=== PATIENT | female | born 1985 | race African-American/Black ===

== ENCOUNTER 2019-06-05 05:30 | Inpatient (IN) | payer OTHER ==
[2019-06-05] MEDS ORDERED: Diphenoxylate HCl/Atropine Tablet PO PRN ×2 (23:11)
[2019-06-05] MEDS ORDERED: Zolpidem Tartrate 5 MG TAB PO PRN (23:11)
[2019-06-05] MEDS ORDERED: Butorphanol Tartrate 1 MG/ML VIAL SLOW IVP PRN (23:11)
[2019-06-05] MEDS ORDERED: NS w/ Oxytocin 10 units 500 ML IV SCH ×2 (23:11)
[2019-06-05] MEDS ORDERED: Promethazine HCl 25 MG/ML VIAL IM PRN (23:11)
[2019-06-05] MEDS ORDERED: Misoprostol 200 MCG TAB PR PRN (23:11)
[2019-06-05] MEDS ORDERED: Docusate 100 MG CAP PO PRN (23:11)
[2019-06-05] MEDS ORDERED: HYDROcodone/Acetaminophen 5/325 mg Tablet PO PRN ×2 (23:11)
[2019-06-05] MEDS ORDERED: hydrALAZINE 20 MG/ML VIAL SLOW IVP PRN (23:11)
[2019-06-05] MEDS ORDERED: Lidocaine 1% (PF) 30 ML VIAL SC PRN (23:11)
[2019-06-05] MEDS ORDERED: Ondansetron PF 4 MG/2 ML Vial IVP PRN (23:11)
[2019-06-05] MEDS ORDERED: NS / Oxytocin 40 units/1000ml 1,000 ML IV PRN (23:11)
[2019-06-05] MEDS ORDERED: Acetaminophen 500 MG TAB PO PRN (23:11)
[2019-06-05] MEDS ORDERED: Ibuprofen 800 MG TAB PO PRN (23:11)
[2019-06-05 23:21] VITALS: BMI 37.3
[2019-06-06 00:02] LABS: Hemoglobin 10.2 g/dL (12.0-16.0); Mean Corpuscular HGB CONC 32.7 g/dL (32.0-36.0); Mean Corpuscular Hemoglobin 24.2 pg (27.0-31.0); Mean Corpuscular Volume 74.1 fL (78.0-98.0); Mean Platelet Volume 8.4 fL (7.4-10.4); Platelet Count 199 thou/uL (130-400); RBC Distribution Width 12.1 % (11.5-14.5); Red Blood Cell (RBC) Count 4.19 mill/uL (4.20-5.40)
[2019-06-06] MEDS: Lactated Ringer's 1,000 ML IV SCH ×2 (00:08→08:47)
[2019-06-06] MEDS: Misoprostol 100 MCG TAB VAG SCH ×3 (00:08→20:40)
[2019-06-06 00:38] LABS: Hep B Surf Ag Non-Reactive S/CO (NonReactive); Syphilis Antibody Nonreactive (Nonreactive); Syphilis Antibody Index 0.07 S/CO (<1.00 Non-Reactive)
[2019-06-06] MEDS ORDERED: Fentanyl 4 mcg/Bup 0.1% Cadd 100 ML ONE (09:55)
[2019-06-06] MEDS ORDERED: Lactated Ringer's 500 ML IV PRN (10:31)
[2019-06-06] MEDS ORDERED: Naloxone HCl 0.4 mg/ml Vial IVP PRN ×2 (10:31)
[2019-06-06] MEDS ORDERED: ePHEDrine/0.9% NaCl/PF SYRINGE 50 mg/10 ml SLOW IVP PRN (10:31)
[2019-06-06] MEDS ORDERED: Promethazine HCl 25 MG/ML VIAL IM PRN (10:31)
[2019-06-06] MEDS ORDERED: Acetaminophen 325 MG TAB PO PRN (10:31)
[2019-06-06] MEDS ORDERED: diphenhydrAMINE 50 MG/ML VIAL IVP PRN (10:31)
[2019-06-06] MEDS ORDERED: Ondansetron PF 4 MG/2 ML Vial IVP PRN ×2 (10:31→12:36)
[2019-06-06] MEDS ORDERED: Communication Order-Pharmacy FS SCH (10:45)
[2019-06-06] MEDS ORDERED: Fentanyl 4 mcg/Bupivacaine 0.1% Cassette 100 ML EPIDURAL SCH (10:45)
[2019-06-06] MEDS ORDERED: Misoprostol 200 MCG TAB VAG PRN (12:36)
[2019-06-06] MEDS ORDERED: hydrALAZINE 20 MG/ML VIAL SLOW IVP PRN (12:36)
[2019-06-06] MEDS ORDERED: Bisacodyl 10 MG SUPP PR PRN (12:36)
[2019-06-06] MEDS ORDERED: Lanolin Ointment 7 GM TUBE TOP PRN (12:36)
[2019-06-06] MEDS ORDERED: diphenhydrAMINE 25 MG CAP PO PRN (12:36)
[2019-06-06] MEDS ORDERED: Adacel (T-DAP) 0.5 ML SYRINGE IM ONE (12:36)
[2019-06-06] MEDS ORDERED: Benzocaine-Menthol 82.5 ML CAN TOP PRN (12:36)
[2019-06-06] MEDS ORDERED: Preparation H Ointment 28 GM TUBE PR PRN (12:36)
[2019-06-06] MEDS ORDERED: Acetaminophen/Codeine 30-300mg Tablet PO PRN ×2 (12:36)
[2019-06-06] MEDS ORDERED: Milk Of Magnesia 30 ML UDCUP PO PRN (12:36)
[2019-06-06] MEDS ORDERED: Zolpidem Tartrate 5 MG TAB PO PRN (12:36)
[2019-06-06] MEDS ORDERED: NS / Oxytocin 40 units/1000ml 1,000 ML IV SCH (12:45)
[2019-06-06] MEDS: Ibuprofen 800 MG TAB PO SCH ×2 (15:15→21:28)
[2019-06-06] MEDS: Ferrous Sulfate 325 MG TAB PO SCH (16:45)
[2019-06-06] MEDS ORDERED: FLU VACC QS2019-20(6MOS UP)/PF 60 MCG/0.5 ML SYRINGE IM ONE (21:00)
[2019-06-06] MEDS: Docusate Calcium (SURFAK) 240 MG CAP PO SCH (21:28)
[2019-06-07 04:55] LABS: Hemoglobin 9.6 g/dL (12.0-16.0); Mean Corpuscular HGB CONC 32.3 g/dL (32.0-36.0); Mean Corpuscular Hemoglobin 24.1 pg (27.0-31.0); Mean Corpuscular Volume 74.7 fL (78.0-98.0); Mean Platelet Volume 9.1 fL (7.4-10.4); Platelet Count 170 thou/uL (130-400); RBC Distribution Width 12.2 % (11.5-14.5); Red Blood Cell (RBC) Count 3.99 mill/uL (4.20-5.40); White Blood Cell (WBC) Count 9.7 thou/uL (4.8-10.8)
[2019-06-07] MEDS: Ibuprofen 800 MG TAB PO SCH ×3 (05:33→21:35)
[2019-06-07] MEDS: Docusate Calcium (SURFAK) 240 MG CAP PO SCH ×3 (08:51→21:36)
[2019-06-07] MEDS: Prenatal Vitamin 1 TAB PO SCH (08:51)
[2019-06-07] MEDS: Ferrous Sulfate 325 MG TAB PO SCH ×2 (08:52→17:41)
[2019-06-08] MEDS: Ibuprofen 800 MG TAB PO SCH (06:04)
[2019-06-08] MEDS: Prenatal Vitamin 1 TAB PO SCH (08:04)
[2019-06-08] MEDS: Ferrous Sulfate 325 MG TAB PO SCH (08:05)
[2019-06-08] MEDS: Docusate Calcium (SURFAK) 240 MG CAP PO SCH (08:05)
[2019-06-08 08:07] VITALS: BP 115/65; TEMP 98.7
--- NOTE | 2019-06-10 21:55 | PQF ---
Gifty Nicholson L JUSTIN MD [id number] CLINICAL DOCUMENTATION CLARIFICATION FORM: POST DISCHARGE Addendum to original discharge summary date: ____ Late entry note date: __ DATE: 06/10/19 ATTN: Dr aPlma Parada Please exercise your independent, professional judgment in responding to the clarification form. Clinical indicators are provided on the bottom of this form for your review Please check appropriate box(s): [ X] Acute blood loss anemia [ ] Post-op anemia related to acute blood loss [ ] Chronic Anemia: [ ] Blood loss [ ] Hemolytic [ ] Simple [ ] Due to Vitamin B12 Deficiency [ X ] Other [ ] Other diagnosis [ ] Unable to determine In addition, please specify: Present on Admission (POA): [ X ] Yes [ ] No [ ] Unable to determine For continuity of documentation, please document condition throughout progress notes and discharge summary. Thank You. CLINICAL INDICATORS - SIGNS / SYMPTOMS / LABS Laboratory Hematology 06/05: Hgb 10.2, Hct 31.0 Laboratory Hematology 06/07: Hgb 9.6, Hct 29.8 Scanned PN p2 EBL 100cc RISK FACTORS Scanned H&P 39 weeks and 6 days IUP Scanned PN p2 TREATMENTS: SEP 24 Ferrous Sulfate 325mg BID if hemoglobin 10gms Laboratory Hematology monitoring 06/05 (This form is maintained as a part of the permanent medical record) 2014 [employer] All Rights Reserved [email or web address] [not provided] [email or web address]
== END 2019-06-08 12:55 | disposition home or self-care (01) | DRG 806 ==
LOC: L&D 22:21 → 3SW 06-06 16:26
PROVIDERS: ADMIT Obstetrics & Gynecology; ATTEND Obstetrics & Gynecology
PROC: 10E0XZZ Delivery of Products of Conception, External Approach (ICD-10-PCS; principal; 2019-06-05)
PROC: 10907ZC Drainage of Amniotic Fluid, Therapeutic from Products of Conception, Via Natural or Artificial Opening (ICD-10-PCS; 2019-06-05)
PROC: 3E0P7VZ Introduction of Hormone into Female Reproductive, Via Natural or Artificial Opening (ICD-10-PCS; 2019-06-05)
DX: O69.2XX0 Labor and delivery complicated by other cord entanglement, with compression, not applicable or unspecified (principal); D62 Acute posthemorrhagic anemia; Z37.0 Single live birth; Z3A.39 39 weeks gestation of pregnancy; Z88.5 Allergy status to narcotic agent; O90.81 Anemia of the puerperium
CPT/HCPCS: 36415; 51702; 85027; 86780; 86850; 86900; 86901; 87340; J0595; J2590

== ENCOUNTER 2019-12-31 14:58 | Emergency (ER) | payer OTHER, SELFPAY ==
[2020-01-01 12:56] LABS: SARS-CoV-2 MS2 Positive; SARS-CoV-2 N Gene Positive; SARS-CoV-2 S Gene Positive; SARS-CoV-2 orf1ab Positive
== END 2019-12-31 15:55 | disposition home or self-care (01) ==
LOC: ERS 14:58
DX: U07.1 COVID-19 (principal); R05 Cough; R19.7 Diarrhea, unspecified; R06.02 Shortness of breath; R09.81 Nasal congestion
CPT/HCPCS: 87635; 99283; U0003

== ENCOUNTER 2021-01-05 16:37 | Emergency (ER) | payer OTHER ==
[2021-01-05] MEDS ORDERED: Ketorolac Tromethamine 30 MG/ML VIAL ONE (18:04)
== END 2021-01-05 18:10 | disposition home or self-care (01) ==
LOC: ERS 16:37
DX: L03.213 Periorbital cellulitis (principal); H00.013 Hordeolum externum right eye, unspecified eyelid; Z79.899 Other long term (current) drug therapy
CPT/HCPCS: 96372; 99283; J1885

== ENCOUNTER 2023-07-28 13:12 | Emergency (ER) | payer BC, MEDICARE, OTHER ==
[2023-07-28 14:07] LABS: Bacteria/HPF None Seen HPF (None Seen); Bilirubin Negative (Negative); Blood, Urine 1+ (Negative); CAUTI Indications for Culture Pelvic or flank pain; Clarity Clear (Clear); Glucose, Urine (Dipstick) Normal (Negative); Ketone, Urine Negative (Negative); Leukocyte Negative Leu/uL (Negative); Nitrite Negative (Negative); Protein, Urine (Dipstick) Negative (Neg-Trace); RBC/HPF None Seen HPF (0-3); Specific Gravity, Urine 1.022 (1.002-1.036); Squamous Epithelial 0-3 HPF (0-3); Urobilinogen Normal mg/dL (Less than 2); WBC/HPF 0-3 HPF (0-3); pH, Urine 6.5 (5.0-9.0)
[2023-07-28 14:11] LABS: Pregnancy Test - Urine (BHCG) Negative (Negative); Pregu Control Background? CLEAR/WHITE (CLR/WHITE); Pregu Control Bar Appear? YES (CONTROL BAR); Specific Gravity 1.022 (1.002-1.036)
[2023-07-28 14:12] LABS: Urine Culture Reflex No No
== END 2023-07-28 14:52 | disposition left against medical advice (07) ==
LOC: ERS 13:12
DX: Z53.21 Procedure and treatment not carried out due to patient leaving prior to being seen by health care provider (principal)
CPT/HCPCS: 81001; 81025